=== PATIENT | male | born 1955 | race Caucasian/White ===

== ENCOUNTER 2024-04-11 14:41 | Inpatient (IN) | payer MEDICARE ==
[~2024-04-11] VITALS: Ht 165.1 cm; Wt 107.8 kg
[~2024-04-11 14:41] MED LIST: PERCOCET 325 MG1 TA2 PO
[2024-04-18] MEDS ORDERED: Celecoxib 400 MG PREOP X1 PO SCH (06:00)
[2024-04-18] MEDS ORDERED: Pregabalin 150 MG CAP PREOP X1 PO SCH (06:00)
[2024-04-19] VITALS (14 sets, daily range): BP systolic 93–132; BP diastolic 63–77; PULSE 53–67; TEMP 97.3–98.3
[2024-04-19] MEDS ORDERED: Famotidine 20 MG TAB PO SCH (06:00)
[2024-04-19] MEDS ORDERED: LR 1,000 ML IV SCH (06:00)
[2024-04-19] MEDS ORDERED: Tranexamic Acid 1,000 MG/10 ML VIAL ONE (08:09)
[2024-04-19] MEDS ORDERED: Midazolam 2 MG/2 ML VIAL ONE (08:09)
[2024-04-19] MEDS ORDERED: Lidocaine PF 2% (20 MG/ML) 5 ML VIAL ONE (08:09)
[2024-04-19] MEDS ORDERED: Ondansetron 4 MG/2 ML VIAL ONE (08:09)
[2024-04-19] MEDS ORDERED: fentaNYL 50 MCG/ML 2 ML VIAL ONE (08:09)
[2024-04-19] MEDS ORDERED: NS 10 ML IV ONE (08:09)
[2024-04-19] MEDS ORDERED: dexAMETHasone 10 MG/ML VIAL ONE (08:09)
[2024-04-19] MEDS ORDERED: PRINIVIL20 MG PO (08:59)
[2024-04-19] MEDS ORDERED: TOPROL XL 50MG50 MG PO (09:00)
[2024-04-19] MEDS ORDERED: ROXICODONE 55 MG/TAB PO (09:01)
[2024-04-19] MEDS ORDERED: NEURONTIN300 MG/CAP PO (09:01)
[2024-04-19] MEDS ORDERED: SYNTHROID0.112 MG/T PO (09:01)
[2024-04-19] MEDS ORDERED: PRISTIQ 50 MG T50 MG PO (09:02)
[2024-04-19] MEDS ORDERED: LIPITOR 10MG10 MG PO (09:02)
[2024-04-19] MEDS ORDERED: WELLBUTRIN XL300 M1 PO (09:03)
[2024-04-19] MEDS ORDERED: FLEXERIL 1010 MG/TAB PO (09:03)
[2024-04-19] MEDS ORDERED: FOLIC ACID 40400 MCG PO (09:04)
[2024-04-19] MEDS ORDERED: VITAMIN C500 MG PO (09:04)
[2024-04-19] MEDS ORDERED: SLOW FE137 M1 PO (09:05)
[2024-04-19] MEDS ORDERED: METHYLFOLATE1 EAC1 PO (09:11)
[2024-04-19] MEDS ORDERED: Promethazine 25 MG TAB PO PRN (09:30)
[2024-04-19] MEDS ORDERED: Cyclobenzaprine 10 MG TAB PO PRN (09:30)
[2024-04-19] MEDS ORDERED: oxyCODONE 5 MG TAB PO PRN (09:30)
[2024-04-19] MEDS ORDERED: Magnes Hydrox (MOM) 80 MG/ML 30 ML CUP PO PRN (09:30)
[2024-04-19] MEDS ORDERED: Naloxone 0.4 MG/ML VIAL IV PRN (09:30)
[2024-04-19] MEDS ORDERED: traMADol 50 MG TAB PO PRN (09:30)
[2024-04-19] MEDS ORDERED: Promethazine 50 MG/ML 1 ML VIAL IM PRN (09:30)
[2024-04-19] MEDS ORDERED: Morphine 4 MG/ML VIAL IV PRN (09:30)
[2024-04-19] MEDS ORDERED: Morphine 2 MG/1 ML VIAL [PACU/SDC ONLY] IV PRN (09:45)
[2024-04-19] MEDS ORDERED: HYDROmorphone 1 MG/1 ML SYRINGE [PACU/SDC ONLY] IV PRN (09:45)
[2024-04-19] MEDS ORDERED: fentaNYL 50 MCG/ML 1 ML SYRINGE/VIAL [PACU/SDC ONLY] IV PRN (09:45)
[2024-04-19] MEDS ORDERED: Ondansetron 4 MG/2 ML VIAL IV PRN (09:45)
[2024-04-19] MEDS ORDERED: NS 1,000 ML IV ONE (09:53)
[2024-04-19] MEDS ORDERED: Acetaminophen 500 MG TAB PO SCH (10:23)
--- NOTE | 2024-04-19 11:00 | NUR ---
PATIENT ARRIVED TO FLOOR FROM PACU @ 1100. VSS. PATIENT RESTING IN BED W/ AT BEDSIDE. PATIENT PEDAL PULSES AT A 2, SPINAL IS STILL IN EFFECT AT THIS TIME. PATIENT HAS NO REQUEST OR COMPLAINTS AT THIS TIME. CALL LIGHT IN REACH
--- NOTE | 2024-04-19 12:42 | NUR ---
HI met with patient and Vidya ([phone]) to complete initial assessment for discharge planning. Patient verified that they live in [place], patient sees Dr. Femi Mcdonald as his PCP and he uses [facility] in [place]. Patient states he has a walker at home that he brought with him. He states he has other DME at home from previous surgery but doesn't need it. Patient states he's completed a DPOA naming his as healthcare DPOA and naming his daughter Daniella Soria as alternate. Patient states it is still on his desk at home and has not been provided to hospital or physician. Patient states that he is already established with [facility] OP therapy to provide services after surgery. Discharge orders will be faxed when completed. Patient plans to return home with OP therapy. Discharge plan: Home with OP therapy
--- NOTE | 2024-04-19 13:48 | NUR ---
PATIENT AWAKE IN BED EATING LUNCH. PATIENT BEGIINING TO GET MORE FEELING IN LEGS AND REQUESTING PAIN MEDS. PAIN MEDS GIVEN ORDERED.
[2024-04-19] MEDS ORDERED: Gabapentin 300 MG CAP PO SCH (14:00)
[2024-04-19] MEDS ORDERED: dexAMETHasone 10 MG/ML VIAL IV SCH (16:00)
[2024-04-19] MEDS ORDERED: ceFAZolin 2 G in Water For Injection,Sterile 20 ML IV SCH (16:00)
--- NOTE | 2024-04-19 18:20 | NUR ---
PATIENT UP TO CHAIR WATCHING TV, HAS AMBULATED TO RESTROOM AND AND EATEN DINNER. PATIENT REPORTS PAIN 3/10 NO PAIN MEDS REQUESTED AT THIS TIME. CRYO CUFF IN PLACE AND PATIENT HAS KNEE ELEVATED ON PILLOW. PATIENT HAS NO REQUEST AT THIS TIME. CALL LIGHT IN REACH.
--- NOTE | 2024-04-19 18:30 | NUR ---
report received from napoleon marie. pt sitting in recliner watching tv. pt denies pain. call light in reach. all needs met at this time.
--- NOTE | 2024-04-19 20:06 | NUR ---
shift assessment complete, see documentation. pt tolerated hs meds well. pt reporting 4/10 to the right knee. prn oxycodone administered per orders. pt ambulating independently without issue. call light in reach. all needs met at this time.
[2024-04-19] MEDS ORDERED: Atorvastatin 10 MG TAB PO SCH (21:00)
[2024-04-19] MEDS ORDERED: Sennosides/Docusate 8.6-50 MG TAB PO SCH (21:00)
[2024-04-20 01:26] VITALS: BP_SYST 122
--- NOTE | 2024-04-20 02:18 | NUR ---
pt reporting 4/10 left knee pain. scheduled tylenol and prn oxycodone administered per orders. call light in reach. all needs met at this time.
[2024-04-20 03:32] VITALS: BP 118/65; PULSE 60; TEMP 97.5
[2024-04-20 05:24] VITALS: BP_SYST 118
[2024-04-20 06:35] LABS: HEMATOCRIT 40.3 % (42.0-52.0); HEMOGLOBIN 13.4 g/dl (13.5-18.0)
[2024-04-20 08:00] VITALS: BP 145/84; PULSE 69; TEMP 98.3
--- NOTE | 2024-04-20 08:00 | NUR ---
PATIENT IS A&O. VSS. RATES PAIN IN LLE AT 4/10 AND REQUESTING SOMETHING FOR PAIN BEFORE AM THERAPY & DISCHARGE. GAVE PRN ROXICODONE WITH AM MEDS. DC'D LEFT HAND IV FOR PENDING DISCHARGE AND COVERED SITE WITH GAUZE & COBAN. PATIENT TOLERATING GENERAL DIET. INDEPENDENT IN ROOM. HEAD TO TOE ASSESSMENT WNL. LLE DSG IS CD&I WITH ACEWRAP. TEDS TO RLE. SCD'S CURRENTLY OFF. POSITIVE PEDAL PULSES TO BLE. NO OTHER NEEDS AT THIS TIME. CALL LIGHT IN REACH.
[2024-04-20] MEDS ORDERED: CELEBREX 200MG200 MG PO (08:58)
[2024-04-20] MEDS ORDERED: ASPI325T6 PO (08:58)
[2024-04-20] MEDS ORDERED: ROXICODONE 55 MG/TAB PO (08:58)
[2024-04-20] MEDS ORDERED: TYLENOL 500MG500 MG PO (08:58)
[2024-04-20] MEDS ORDERED: ULTRAM 50MG TAB50 MG PO (08:58)
[2024-04-20] MEDS ORDERED: buPROPion XL (24-HR) 150 MG TAB PO SCH (09:00)
[2024-04-20] MEDS ORDERED: Celecoxib 200 MG CAP PO SCH (09:00)
[2024-04-20] MEDS ORDERED: Lisinopril 20 MG TAB PO SCH (09:00)
--- NOTE | 2024-04-20 11:32 | NUR ---
PATIENT DISCHARGING HOME. GAVE DISCHARGE INSTRUCTIONS AND DISCUSSED F/U APTS. PATIENT & REPORT THEY DID KNOW THEY NEEDED TO [facility] PRIOR TO SURGERY AND THEIR PHARMACY IS CLOSED TODAY DUE TO THE HOLIDAY. RN NOTIFIED ORTHO, [facility] SENT TO ANOTHER PHARMACY. CHANGED LLE POSTOP DSG AND APPLIED ELENAEL & MICHA TO LLE. PATIENT GOING HOME WITH CRYOCUFF. PATIENT IS DRESSED, PACKED AND DISCHARGED VIA AMBULATORY TO PERSONAL VEHICLE WITH .
== END 2024-04-20 11:32 | disposition home or self-care (01) | DRG 488 ==
LOC: INPTSU 04-19 07:25 → SURG 04-19 11:00
PROVIDERS: Physician Assistant; ADMIT Orthopaedic Surgery
PROC: 0SUW09Z Supplement Left Knee Joint, Tibial Surface with Liner, Open Approach (ICD-10-PCS; 2024-04-19)
PROC: 0SPD09Z Removal of Liner from Left Knee Joint, Open Approach (ICD-10-PCS; principal; 2024-04-19 14:50)
DX: S72.002A Fracture of unspecified part of neck of left femur, initial encounter for closed fracture (principal); M97.02XA Periprosthetic fracture around internal prosthetic left hip joint, initial encounter
CPT/HCPCS: A6197; A9284; C1776; J0690; J1100; J2250; J2405; J2704; J3010; J7030; J7120